=== PATIENT | female | born 1965 | race Caucasian/White ===

== ENCOUNTER 2018-02-22 22:47 | Emergency (ER) | payer OTHER ==
[2018-02-22] MEDS: HYDROcodone/APAP 5/325MG 1 TAB TABLET PO ×3 (23:39)
== END 2018-02-23 02:34 | disposition home or self-care (01) ==
LOC: ER 22:47
DX: S00.83XA Contusion of other part of head, initial encounter (principal); S00.12XA Contusion of left eyelid and periocular area, initial encounter (principal); M54.2 Cervicalgia; M54.6 Pain in thoracic spine; R55 Syncope and collapse; F41.9 Anxiety disorder, unspecified; F32.9 Major depressive disorder, single episode, unspecified; I10 Essential (primary) hypertension; Z87.440 Personal history of urinary (tract) infections; V43.52XA Car driver injured in collision with other type car in traffic accident, initial encounter; Y93.89 Activity, other specified; Y92.488 Other paved roadways as the place of occurrence of the external cause; Y99.8 Other external cause status
CPT/HCPCS: 70450; 72125; 72128; 99284

== ENCOUNTER 2021-09-17 22:20 | Emergency (ER) | payer MEDICARE, OTHER ==
[~2021-09-17] VITALS: Ht 167.6 cm; Wt 57.9 kg
[~2021-09-17 22:20] MED LIST: AMLO-186 PO; B CO1CAP5 PO; BACL10TA PO; CEPH500C PO; CIPR500T94 PO; CITA20TA6 PO; DIAZ5TAB PO; DOCU-109 PO; ESOM40CA PO; ESTROVEN ENER400 MCG PO; FLUO20CA22 PO; GABA300C18 PO; GABA600T7 PO; HYDR-2761 PO; HYDR-2765 PO; HYDR-3135 PO; HYDR-3164 PO; LIPA1CAP6 PO; METH-38 PO; MULT-245 PO; MULT-658 PO; Methocarbamol PO; ONDA4TAB10 SL; OXYC1TAB15 PO; OXYC1TAB8 PO; OXYC5TAB4 PO; Oxycodone Hcl/Acetaminophen PO; PANT40TA77 PO; RANI150T2 PO; SIMV20TA18 PO; TIZA-75 PO; VITA100T7 PO
[2021-09-18] MEDS ORDERED: ACYC800T88 PO (01:22)
[2021-09-18] MEDS ORDERED: NEOM28OI48 TP (01:22)
--- NOTE | 2021-09-18 01:22 | PHYS DOC ---
Past Medical History Past Medical History: Anxiety, Depression, Hypertension, Hepatitis, Pancr eatitis, UTI Past Surgical History: No Surgical History Additional Past Surgical Histo: SEE HISTORY Smoking Status: Current Every Day Smoker Alcohol Use: Heavy Drug Use: Cocaine General Adult EDM: Chief Complaint: SKIN RASH/ABSCESS HPI: HPI: 56-year-old female past medical history of anxiety/depression, hypertension, tobacco abuse and history of lung and throat cancer (s/p radiation, on immunotherapy), presents to the ED with complaints of painful red rash with blisters that started on her left upper back, left shoulder and left upper chest for the past 2 days. Reports rash has not been been on her face, neck or near her ears. Reports no associated hearing loss or blurry vision. Reports associated pain and fatigue. Has immunotherapy scheduled on Friday with her oncologist at . Review of Systems: Review of Systems: Constitutional: Denies fever or chills. [] Eyes: Denies change in visual acuity. [] HENT: Denies nasal congestion or sore throat. [] Respiratory: Denies cough or shortness of breath. [] Cardiovascular: Denies chest pain or edema. [] GI: Denies nausea or vomiting Musculoskeletal: Denies back pain or joint pain. [] Integument: Denies bleeding or diaphoresis Neurologic: Denies headache or neck stiffness Psychiatric: Denies depression or anxiety. [] Heart Score: C/O Chest Pain: No Risk Factors: Risk Factors: DM, Current or recent (<one month) smoker, HTN, HLP, family history of CAD, obesity. Risk Scores: Score 0 - 3: 2.5% MACE over next 6 weeks - Discharge Home Score 4 - 6: 20.3% MACE over next 6 weeks - Admit for Clinical Observation Score 7 - 10: 72.7% MACE over next 6 weeks - Early Invasive Strategies Allergies: Allergies: Allergies Coded Allergies Type Severity Reaction Last Updated Verified No Known Drug Allergies 02/13/16 No Physical Exam: PE: Constitutional: Well developed, well nourished, no acute distress, non-toxic appearance. HENT: Normocephalic, atraumatic, mucous membranes dry with no ulcers or evidence of rash Eyes: EOMI, conjunctiva normal, no discharge. Neck: Normal range of motion, supple, Cardiovascular: S1/2 present, regular rhythm Lungs & Thorax: Speaking in full sentences, bilateral equal chest rise, no tachy pnea or increased work of breathing Abd: soft, g-tube present Skin: Warm, dry, patchy areas of erythema over patient's upper left back and upper left chest with vesicular lesions over anterior chest, lesions on back are crusted w/no associated increased warmth Back: no CVA tenderness, no midline step offs, see skin Extremities: No tenderness, no cyanosis, Neurologic: Alert and oriented X 3, no focal deficits noted. [] Psychologic: Normal affect, calm mood Current Patient Data: Vital Signs: Vital Signs Date Time Temp Pulse Resp B/P (MAP) Pulse Ox O2 Delivery O2 Flow Rate FiO2 09/17/21 22:54 97.8 114 18 114/63 (80) 97 Room Air 97.8 EKG: EKG: [] Radiology/Procedures: Radiology/Procedures: [] Course & Med Decision Making: Course & Med Decision Making Pertinent Labs and Imaging studies reviewed. (See chart for details) Concern for shingles outbreak in an immunosuppressed female. Patient well- appearing, and in no distress. Will treat with acyclovir and prescribed triple abx cream with analgesia. Patient well-appearing no associated fever. Does not include the tip of the nose and is not near her neck or ear to consider Apryl Chin or herpes zoster ophthalmicus. Rash does not cross midline and remains in the left side of her body. Will discharge home with strict ED return precautions were given for worsening rash, fever or pain. Patient was educated that she would need an ear and eye exam if rash should moved to the skin areas. Encouraged urgent outpatient follow-up with PMD for repeat evaluation in 2 to 3 days. Life-threatening processes were considered but are low suspicion at this time, given history, physical exam and ED workup. Pt was educated on all prescription medications and adverse effects. All patient's questions were answered and pt was stable at time of discharge. Life/limb-threatening differential includes but is not limited to, erythema mu ltiforme, patiño-cyn syndrome, toxic epidermal necrolysis, staphylococcal scalded skin syndrome, necrotizing fasciitis/myositis/cellulitis, purpura fulminans, heparin or warfarin induced skin necrosis, angioedema, anaphylaxis drug rash, disseminated intravascular coagulation, disseminated gonococcal disease, vasculitis, septicemia, petechial disorder or coagulopathy, viral exa nthem, Kawasaki's disease or life-threatening burn requiring burn center management or escharotomy. I have spoken with the patient and/or caregivers. I explained the patient's condition, diagnoses and treatment plan based on the information available to me at this time. I have answered the patient and/or caregiver's questions and addressed any concerns. The patient and/or caregivers have a good understanding of patient's diagnosis, condition and treatment plan as can be expected at this point. Vital signs have been stable. Patient's condition is stable and appropriate for discharge from the emergency department. Patient will pursue further outpatient evaluation with primary care physician or other designated or consulting physician as outlined in the discharge instructions. The patient and/or caregivers are agreeable to this plan of care and follow-up instructions have been explained in detail. The patient and/or caregivers have received these instructions in written form and have expressed an understanding of the discharge instructions. The patient and/or caregivers are aware that any significant change of condition or worsening of symptoms should prompt immediate return to this or the closest emergency department [facility] Disclaimer: Miriam Disclaimer: This electronic medical record was generated, in whole or in part, using a voice recognition dictation system. Departure Departure Impression: Primary Impression: Masood Disposition: 01 HOME / SELF CARE / HOMELESS Condition: STABLE Referrals: SERGEY NEVAREZ MD (PCP) Follow-up with your primary care physician in 24 to 48 hours OR FOLLOW UP WITH FAMILY MEDICINE: [address], [address] [place] [address] Patient Instructions: Masood Additional Instructions: EMERGENCY DEPARTMENT GENERAL DISCHARGE INSTRUCTIONS Thank you for coming to [facility] Emergency Department (ED) today and trusting us with you care. We trust that you had a positive experience in our Emergency Department. If you wish to speak to the department management, you may call the Director at [phone]. YOUR FOLLOW UP INSTRUCTIONS ARE FOLLOWS: 1. Do you have a private Doctor? If you do not have a private doctor, please ask for a resource list of physicians or clinics that may be able to assist you with follow up care. 2. The Emergency Physicain has interpreted your x-rays. The X-Ray specialist will also review them. If there is a change in the findings, you will be notified in 48 hours when at all possible. 3. A lab test or culture has been done, your results will be reviewed and you will be notified if you need a change in treatment. ADDITIONAL INSTRUCTIONS AND INFORMATION: 1. Your care today has been supervised by a physician who is specially trained in emergency care. Many problems require more than one evaluation for a complete diagnosis and treatment. We recommend that you schedule your follow up appointment as recommended to ensure complete treatment of you illness or injury. If you are unable to obtain follow up care and continue to have a problem, or if your condition worsens, we recommend that you return to the ED. 2. We are not able to safely determine your condition over the phone nor are we able to give sound medical advice over the phone. For these safety reasons, if you call for medical advice we will ask you to come to the ED for further evaluation. 3. If you have any questions regarding these discharge instructions please call the ED at [phone]. SAFETY INFORMATION: In the interest of safety, wellness, and injury prevention; we encourage you to wear your sealbelt, if you smoke; quite smoking, and we encourage family to use a pro tective helmet for bicycling and other sporting events that present an increased risk for head injury. IF YOUR SYMPTOMS WORSEN OR NEW SYMPTOMS DEVELOP, OR YOU HAVE CONCERNS ABOUT YOUR CONDITION; OR IF YOUR CONDITION WORSENS WHILE YOU ARE WAITING FOR YOUR FOLLOW UP APPOINTMENT; EITHER CONTACT YOUR PRIMARY CARE DOCTOR, THE PHYSICIAN WHOSE NAME AND NUMBER YOU WERE GIVEN, OR RETURN TO THE ED IMMEDIATELY. Scripts Neomycn/Baci Zn/Pmyx Bs/Pramox (Triple Antibioti-Pain Rlf Oint) 28 Gm Oint...g. 28 GM TP QID PRN for PAIN, #1 MISC Prov: HERBERTH SANCHEZ DO 09/18/21 Acyclovir (ACYCLOVIR) 800 Mg Tablet 1 TAB PO 5XDAY for 7 Days, #35 TAB Prov: HERBERTH SANCHEZ DO 09/18/21 HERBERTH SANCHEZ DO Sep 18, 2021 01:22
[2021-09-18 02:30] VITALS: BP 110/60
== END 2021-09-18 02:30 | disposition home or self-care (01) ==
LOC: ER 22:20
DX: B02.9 Zoster without complications (principal); I10 Essential (primary) hypertension; Z72.0 Tobacco use; F10.20 Alcohol dependence, uncomplicated; Y90.9 Presence of alcohol in blood, level not specified
CPT/HCPCS: 99283